=== PATIENT | male | born 1975 | race Two or more races ===

== ENCOUNTER → 2017-12-17 | Outpatient (CLI) | payer MEDICAID | LOC: BMCIMAGING 09:04 | PROVIDERS: ATTEND Internal Medicine | DX: S22.41XA Multiple fractures of ribs, right side, initial encounter for closed fracture (principal) | CPT/HCPCS: 71101-PO ==

== ENCOUNTER → 2017-12-22 | Outpatient (CLI) | payer MEDICAID | LOC: BMCIMAGING 13:54 | PROVIDERS: ATTEND Internal Medicine | DX: M79.642 Pain in left hand (principal) ==

== ENCOUNTER → 2018-01-04 | Outpatient (CLI) | payer MEDICAID ==
--- NOTE | 2018-01-04 09:08 | CPEKG ---
Heart Rate: 63 RR Interval: 952 P-R Interval: 160 QRSD Interval: 86 QT Interval: 376 QTC Interval: 385 P [place]: 64 QRS [place]: 38 T Wave [place]: 45 EKG Severity - NORMAL ECG - EKG Impression: SINUS RHYTHM Electronically Signed By: Porfirio John 04-Jan-2018 09:33:39
== END ==
LOC: FCP 08:51
PROVIDERS: ATTEND Nurse Practitioner Psychiatric/Mental Health
DX: Z13.6 Encounter for screening for cardiovascular disorders (principal); Z79.899 Other long term (current) drug therapy